=== PATIENT | male | born 1950 | race Caucasian/White ===

== ENCOUNTER 2018-05-27 15:57 | Inpatient (IN) | payer MEDICARE, MEDICAID ==
[~2018-05-27] VITALS: Ht 182.9 cm; Wt 93.0 kg
[2018-05-27] MEDS ORDERED: furosemide 10 MG/1 ML 10ml inj IV ONE (16:10)
[2018-05-27] MEDS ORDERED: normal saline 1000ML IV soln IV ONE (16:50)
[2018-05-27] MEDS ORDERED: morphine 4 MG/ML inj SYRINge IV ONE (16:50)
[2018-05-27] MEDS ORDERED: vancomycin/NS 1 GM ADD-VANTAGE 250 ML IV ONE (16:50)
[2018-05-27] MEDS ORDERED: piperacillin/tazo 3.375gm/50ml 50 ML IV ONE (16:50)
[2018-05-27] MEDS ORDERED: acetaminophen 325mg tablet PO ONE (16:50)
[2018-05-27 17:02] LABS: BASOPHILS # (AUTO) 0.3 X10'3 (0-0.2); BASOPHILS % (AUTO) 1.8 % (0-1); EOSINOPHILS % (AUTO) 0 % (0-6); HEMATOCRIT 34.5 % (42.0-52.0); HEMOGLOBIN 11.5 g/dl (14.0-17.9); LYMPHOCYTES # (AUTO) 0.2 X10'3 (1.1-4.8); LYMPHOCYTES % (AUTO) 1.4 % (21-51); MEAN CORPUSCULAR HGB CONC 33.3 g/dL (33.0-36.5); MEAN PLATELET VOLUME 7.4 FL (7.4-10.4); MONOCYTES # (AUTO) 0.1 X10'3 (0-0.9); MONOCYTES % (AUTO) 0.4 % (2-12); NEUTROPHILS # (AUTO) 14.8 X10'3 (1.8-7.7); NEUTROPHILS % (AUTO) 96.4 % (42-75); PLATELET COUNT 230 X10'3 (140-440); RED BLOOD COUNT 3.83 X10'6 (4.70-6.10); RED CELL DISTRIBUTION WIDTH 16.9 % (11.5-14.5); WHITE BLOOD COUNT 15.4 X10'3 (4.5-11.0)
[2018-05-27 17:26] LABS: ALANINE AMINOTRANSFERASE 33 U/L (12-78); ALBUMIN 1.6 G/DL (3.4-5.0); ALBUMIN/GLOBULIN RATIO 0.3 (1.1-1.5); ALKALINE PHOSPHATASE 115 IU/L (46-116); ANION GAP 10 (8-16); ASPARTATE AMINO TRANSFERASE 61 U/L (10-37); BILIRUBIN,TOTAL 1.5 MG/DL (0.1-1.0); BLOOD UREA NITROGEN 44 MG/DL (7-18); CALCIUM 7.7 MG/DL (8.5-10.1); CHLORIDE 91 MMOL/L (99-107); CREATININE 1.42 MG/DL (0.60-1.10); GLUCOSE 97 MG/DL (70-104); POTASSIUM 4.1 MMOL/L (3.5-5.1); SODIUM 124 MMOL/L (135-145); TOTAL CARBON DIOXIDE 23.4 MMOL/L (24-32); TOTAL PROTEIN 6.7 G/DL (6.4-8.2); eGFR 50 ML/MIN
[2018-05-27 17:27] LABS: INR 1.4 INR; PROTHROMBIN TIME 13.6 SECONDS (9.0-12.0)
[2018-05-27 18:13] LABS: PLATELET ESTIMATE NORMAL; TOTAL CELLS COUNTED 100
[2018-05-27 18:14] LABS: ANISOCYTOSIS 1+
[2018-05-27 18:15] LABS: BURR CELLS FEW; ELLIPTOCYTES FEW; TOXIC GRANULATION 1+; TOXIC VACUOLATION 1+
[2018-05-27 18:16] LABS: POLYCHROMASIA FEW
[2018-05-27] MEDS ORDERED: POTA10CA44 PO (19:14)
[2018-05-27] MEDS ORDERED: FURO40TA4 PO (19:14)
[2018-05-27] MEDS ORDERED: METF500T7 PO (19:14)
[2018-05-27] MEDS ORDERED: AMIO200T54 PO (19:14)
[2018-05-27] MEDS ORDERED: LISI-604 PO (19:17)
[2018-05-27] MEDS ORDERED: METO50TA7 PO (19:17)
[2018-05-27] MEDS ORDERED: APIX5TAB3 PO (19:17)
[2018-05-27] MEDS ORDERED: magnesium hydroxide 30ml (MOM) UD suspension PO PRN (19:30)
[2018-05-27] MEDS ORDERED: mag hydrox/Alum hydrox/simeth 30ml oral suspension PO PRN (19:30)
[2018-05-27] MEDS ORDERED: ondansetron/PF 4mg/2ml inj IV PRN (19:30)
[2018-05-27] MEDS ORDERED: morphine 4 MG/ML inj SYRINge IV PRN ×2 (19:30)
[2018-05-27] MEDS ORDERED: acetaminophen 325mg tablet PO PRN (19:30)
[2018-05-27] MEDS ORDERED: insulin Lispro (HumaLOG) vial - multi-dose SQ SCH (19:35)
[2018-05-27] MEDS ORDERED: dextrose ORAL solution 15 GM/59 ML bottle PO PRN ×2 (19:35)
[2018-05-27] MEDS ORDERED: dextrose 50%-water 50ml dispensing syringe IV PRN ×2 (19:35)
[2018-05-27] MEDS ORDERED: glucagon, human recombinant 1mg kit SUBCUT PRN (19:35)
[2018-05-27] MEDS ORDERED: MESSAGE TO PHARMACY PO ONE (19:35)
[2018-05-27] MEDS: vancomycin/NS 1 GM ADD-VANTAGE 250 ML X 1 DOSE IV SCH ×2 (19:55→22:00)
[2018-05-27] MEDS ORDERED: heparin, porcine 5000 units/ml vial SQ SCH (20:00)
[2018-05-27 20:06] LABS: HEMOGLOBIN A1C 7.4 % (4.5-6.2)
[2018-05-27] MEDS: apixaban 5mg tablet PO SCH (20:29)
--- NOTE | 2018-05-27 21:10 | NUR ---
received pt report from Jose Alberto JACKSON. asked questions awaiting pt arrival.
[2018-05-27 22:00] VITALS: BP 94/51
[2018-05-27] MEDS: insulin glargine (Lantus) pen - multi-dose SQ SCH (22:21)
[2018-05-28] VITALS: BP 93/57
[2018-05-28] MEDS: cefepime 1GM/NS ADD-VANTAGE 100 ML IV SCH ×3 (00:06→16:43)
[2018-05-28 05:18] LABS: HEMATOCRIT 32.9 % (42.0-52.0); HEMOGLOBIN 10.7 g/dl (14.0-17.9); LYMPHOCYTES # (AUTO) 0.3 X10'3 (1.1-4.8); MEAN CORPUSCULAR HEMOGLOBIN 28.6 PG (27.0-31.0); MEAN CORPUSCULAR HGB CONC 32.6 g/dL (33.0-36.5); MEAN CORPUSCULAR VOLUME 87.7 FL (78-98); MONOCYTES # (AUTO) 0.4 X10'3 (0-0.9); PLATELET COUNT 196 X10'3 (140-440); RED BLOOD COUNT 3.75 X10'6 (4.70-6.10); RED CELL DISTRIBUTION WIDTH 17.7 % (11.5-14.5); WHITE BLOOD COUNT 11.8 X10'3 (4.5-11.0)
[2018-05-28 05:26] LABS: BASOPHILS % (AUTO) 0.1 % (0-1); EOSINOPHILS % (AUTO) 0 % (0-6); LYMPHOCYTES % (AUTO) 2.9 % (21-51); MONOCYTES % (AUTO) 3.8 % (2-12); NEUTROPHILS % (AUTO) 93.2 % (42-75)
[2018-05-28 05:27] LABS: ALANINE AMINOTRANSFERASE 26 U/L (12-78); ALBUMIN 1.1 G/DL (3.4-5.0); ALBUMIN/GLOBULIN RATIO 0.3 (1.1-1.5); ALKALINE PHOSPHATASE 274 IU/L (46-116); ANION GAP 6 (8-16); ASPARTATE AMINO TRANSFERASE 55 U/L (10-37); BILIRUBIN,TOTAL 1.1 MG/DL (0.1-1.0); BLOOD UREA NITROGEN 43 MG/DL (7-18); BUN/CREATININE RATIO 34.1 (5.4-32.0); CALCIUM 7.1 MG/DL (8.5-10.1); CHLORIDE 97 MMOL/L (99-107); CREATININE 1.26 MG/DL (0.60-1.10); GLUCOSE 77 MG/DL (70-104); POTASSIUM 3.9 MMOL/L (3.5-5.1); SODIUM 128 MMOL/L (135-145); TOTAL CARBON DIOXIDE 24.7 MMOL/L (24-32); TOTAL PROTEIN 5.3 G/DL (6.4-8.2); eGFR 57 ML/MIN
--- NOTE | 2018-05-28 06:48 | NUR ---
Problems reprioritized. Patient report given, questions answered & plan of care reviewed with Lesly JACKSON. No signs of distress. call light in reach. IV intact.
[2018-05-28 07:26] VITALS: BP 99/60
[2018-05-28] MEDS: vancomycin inj 1,250 MG in normal saline 250ml IV soln 250 ML IV SCH ×2 (08:00→21:04)
[2018-05-28] MEDS ORDERED: non-formulary drug (Metoprolol Succinate* (Toprol Xl*) 1 TAB) PO SCH (08:00)
[2018-05-28] MEDS ORDERED: metoprolol succinate 25mg (24-HOUR) SR. Tablet PO SCH (08:00)
[2018-05-28] MEDS: amiodarone 200mg tablet PO SCH (08:13)
[2018-05-28] MEDS: apixaban 5mg tablet PO SCH ×2 (08:13→21:05)
--- NOTE | 2018-05-28 12:25 | NUR ---
Notified Dr. Robles of accu checks hypoglycemic results. Order to feed patient lunch and retake the accu check.
[2018-05-28 12:46] VITALS: BP 98/59
--- NOTE | 2018-05-28 13:15 | NUR ---
Paged Dr Robles "PAGER ID: [phone] MESSAGE: [phone] Anish Spivey there are no transfer orders for this patient. Are you wanting them transferred to PCU or just placed on Tele monitoring?"
--- NOTE | 2018-05-28 13:22 | NUR ---
Patient low BG after eating and drinking, asymptomatic at this time. Will give apple juice and take accu check repeat in 15 minutes. Will continue to monitor.
--- NOTE | 2018-05-28 13:58 | NUR ---
DM consult: Pt with A1c 7.4 given written DM ed with referral to outpatient DM class and RD contact information. Pt with no questions at this time. Pt with DM ulcer/cellulitis bilat calf given written and verbal protein education. Pt on CHO controlled diet with no doc PO intake however pt reports low intake r/t difficulty chewing. While visiting pt RN changed patient's diet to pureed CHO controlled and ordered a protein shake TID. Although pt has T2DM, protein shake is appropriate at this time d/t patient's low PO intake, increased protein needs, and low BG levels with a range of 65-92 throughout LOS. Will continue to follow and monitor BG levels and need for change of ONS. Addendum: 05/28/18 at [address] Amended: Links added.
--- NOTE | 2018-05-28 14:03 | NUR ---
Attempted to call report to ceramic research engineer, unable to find her. Charge will give nurse taking patient unit number to call back.
--- NOTE | 2018-05-28 14:13 | NUR ---
Problems reprioritized. Patient report given, questions answered & plan of care reviewed with Miriam JACKSON on Tele.
[2018-05-28 15:00] VITALS: BP 96/66
--- NOTE | 2018-05-28 15:02 | NUR ---
Patient transferred to Tele unit room 3012C. Report called. Notified nurse that patient has wounds in which all are photographed and in the chart. Patient had a bed bath just before leaving the unit and linen change as well. Patient is SL with patent IV. BM just before leaving unit.
--- NOTE | 2018-05-28 16:00 | NUR ---
During assessment of patient and bed bath with assistance from PCT, noted significant draining and weeping wounds, open areas, and necrosis to bilateral calves and feet. Heels are floated, wounds are open to air. pictures are in chart. When turning patient, noted 3 wounds- one to each upper buttock and one on the coccyx bill prominence. area cleansed and new foams placed at this time. Chuy director and charge nurse Miriam made aware. PCT's on the floor made aware to participate in frequent turns to prevent further skin breakdown.
[2018-05-28 18:00] VITALS: BP 90/59
[2018-05-28] MEDS: High Protein Shake w/Arg/Glut/Ca2+Bmb (Juven 19.3gm) pkt 240ml PO SCH (18:00)
--- NOTE | 2018-05-28 18:20 | NUR ---
Patient in room PCU 3012. I have received report from RENETTA Pineda and had the opportunity to ask questions and assume patient care. Patient is sitting up in bed comfortably, unit tech is getting vitals. He is A&O x3, TATUM and is appropriate, he has extensive wound on bilateral lower extremities. I will continue to monitor.
[2018-05-28] MEDS: insulin glargine (Lantus) pen - multi-dose SQ SCH (21:00)
[2018-05-28] MEDS: furosemide 40mg/4ml inj IV SCH (21:05)
[2018-05-28] MEDS: lactobacillus rhamnosus 10,000 MMU CELLS/CAPSULE PO SCH (21:05)
[2018-05-28] MEDS: carVEDilol 3.125mg tablet PO SCH (21:05)
[2018-05-28 22:00] VITALS: BP 93/55
[2018-05-29] MEDS: cefepime 1GM/NS ADD-VANTAGE 100 ML IV SCH ×3 (00:20→16:54)
--- NOTE | 2018-05-29 06:10 | NUR ---
Patient in room PCU 3012. I have received report from Nataliya JACKSON and had the opportunity to ask questions and assume patient care.
--- NOTE | 2018-05-29 06:12 | NUR ---
Problems reprioritized. Patient report given, questions answered & plan of care reviewed with RENETTA Quinteros.
[2018-05-29 06:44] LABS: ALANINE AMINOTRANSFERASE 28 U/L (12-78); ALBUMIN 1.2 G/DL (3.4-5.0); ALBUMIN/GLOBULIN RATIO 0.3 (1.1-1.5); ALKALINE PHOSPHATASE 102 IU/L (46-116); ANION GAP 10 (8-16); ASPARTATE AMINO TRANSFERASE 48 U/L (10-37); BLOOD UREA NITROGEN 44 MG/DL (7-18); BUN/CREATININE RATIO 38.9 (5.4-32.0); CALCIUM 7.1 MG/DL (8.5-10.1); CHLORIDE 98 MMOL/L (99-107); CREATININE 1.13 MG/DL (0.60-1.10); GLUCOSE 85 MG/DL (70-104); SODIUM 129 MMOL/L (135-145); TOTAL CARBON DIOXIDE 20.6 MMOL/L (24-32); TOTAL PROTEIN 5.7 G/DL (6.4-8.2); eGFR 65 ML/MIN
[2018-05-29 07:00] VITALS: BP 97/59
[2018-05-29 07:36] LABS: BASOPHILS # (AUTO) 0.1 X10'3 (0-0.2); BASOPHILS % (AUTO) 0.9 % (0-1); EOSINOPHILS # (AUTO) 0.1 X10'3 (0-0.9); EOSINOPHILS % (AUTO) 0.4 % (0-6); HEMATOCRIT 37.6 % (42.0-52.0); LYMPHOCYTES # (AUTO) 0.5 X10'3 (1.1-4.8); LYMPHOCYTES % (AUTO) 3.9 % (21-51); MEAN CORPUSCULAR HEMOGLOBIN 28.3 PG (27.0-31.0); MEAN CORPUSCULAR VOLUME 88.5 FL (78-98); MEAN PLATELET VOLUME 7.8 FL (7.4-10.4); MONOCYTES # (AUTO) 0.5 X10'3 (0-0.9); MONOCYTES % (AUTO) 3.8 % (2-12); NEUTROPHILS # (AUTO) 11.7 X10'3 (1.8-7.7); PLATELET COUNT 217 X10'3 (140-440); RED BLOOD COUNT 4.25 X10'6 (4.70-6.10); RED CELL DISTRIBUTION WIDTH 17.5 % (11.5-14.5); WHITE BLOOD COUNT 12.9 X10'3 (4.5-11.0)
[2018-05-29] MEDS: High Protein Shake w/Arg/Glut/Ca2+Bmb (Juven 19.3gm) pkt 240ml PO SCH ×3 (08:00→18:00)
[2018-05-29] MEDS: furosemide 40mg/4ml inj IV SCH ×2 (08:00→21:51)
[2018-05-29] MEDS: carVEDilol 3.125mg tablet PO SCH ×2 (08:00→21:51)
[2018-05-29] MEDS: vancomycin inj 1,250 MG in normal saline 250ml IV soln 250 ML IV SCH (09:09)
[2018-05-29] MEDS: apixaban 5mg tablet PO SCH ×2 (09:09→20:00)
[2018-05-29] MEDS: lisinopril 2.5mg tablet PO SCH (09:10)
[2018-05-29] MEDS: lactobacillus rhamnosus 10,000 MMU CELLS/CAPSULE PO SCH ×2 (09:10→21:51)
[2018-05-29] MEDS: amiodarone 200mg tablet PO SCH (09:11)
[2018-05-29 11:00] VITALS: BP 98/62
[2018-05-29] MEDS ORDERED: DOBUTamine-DoBUTrex 500mg/D5W 250 ML IV SCH (13:30)
[2018-05-29 15:00] VITALS: BP 103/65
--- NOTE | 2018-05-29 17:07 | NUR ---
Richard trigger: Richard 12: Pt admit w/ cellulitis and CHF EF 20% per MD note. Pt has BLE/bilateral leg +4 severe non-pitting edema w/ bilateral feet open ulcers and small open area on buttock. [facility] [email or web address] for MVM for wound healing. Pt already receiving high protein Radhames shakes TIDWM PO 25% avg remaining low. Pt has been seenby RD for high protein and DM eds. Pt reports trouble chewing and on pureed diet w/ no BSS; BI DATA ARCHITECT BSS ordered for appropriate texture recs. Will monitor for additional texture modifications and protein preferences. Rec: 1. advance to carb controlled diet w/ texture per BI DATA ARCHITECT recs 2. Radhames high protein shakes for wound healing TIDWM 3. encourage PO; MVM for wounds 4. wt per rx Addendum: 05/29/18 at [address] Amended: Links added.
--- NOTE | 2018-05-29 18:05 | NUR ---
Problems reprioritized. Patient report given, questions answered & plan of care reviewed with Andrea JACKSON.
[2018-05-29 19:00] VITALS: BP 109/67
[2018-05-29] MEDS ORDERED: VANCOMYCIN LEVEL IV NR (19:30)
--- NOTE | 2018-05-29 20:35 | NUR ---
Paged Dr. Horton: RE: Anish Jim, vanco trough 26.7 Hold heron young? Thanks Andrea [facility] [phone]
[2018-05-29] MEDS ORDERED: insulin glargine (Lantus) pen - multi-dose SQ SCH (21:00)
[2018-05-29] MEDS: clindamycin 600mg/D5W 50ml 50 ML IV SCH (21:52)
[2018-05-29] MEDS: CefTRIAXone 2gm/D5W 50ml 50 ML IV SCH (21:52)
[2018-05-29 23:00] VITALS: BP 119/65
[2018-05-30] VITALS (20 sets, daily range): BP systolic 90–154; BP diastolic 56–79
[2018-05-30] MEDS: clindamycin 600mg/D5W 50ml 50 ML IV SCH ×4 (02:02→21:14)
[2018-05-30 05:57] LABS: BASOPHILS % (AUTO) 0.1 % (0-1); EOSINOPHILS # (AUTO) 0.1 X10'3 (0-0.9); EOSINOPHILS % (AUTO) 0.6 % (0-6); HEMATOCRIT 34.6 % (42.0-52.0); HEMOGLOBIN 11.5 g/dl (14.0-17.9); LYMPHOCYTES # (AUTO) 0.7 X10'3 (1.1-4.8); LYMPHOCYTES % (AUTO) 7.3 % (21-51); MEAN CORPUSCULAR HEMOGLOBIN 28.8 PG (27.0-31.0); MEAN CORPUSCULAR HGB CONC 33.2 g/dL (33.0-36.5); MEAN CORPUSCULAR VOLUME 86.8 FL (78-98); MONOCYTES # (AUTO) 0.5 X10'3 (0-0.9); MONOCYTES % (AUTO) 4.4 % (2-12); NEUTROPHILS % (AUTO) 87.6 % (42-75); PLATELET COUNT 225 X10'3 (140-440); RED BLOOD COUNT 3.98 X10'6 (4.70-6.10); RED CELL DISTRIBUTION WIDTH 17.6 % (11.5-14.5); WHITE BLOOD COUNT 10.3 X10'3 (4.5-11.0)
[2018-05-30 06:07] LABS: ALANINE AMINOTRANSFERASE 22 U/L (12-78); ALBUMIN 1.2 G/DL (3.4-5.0); ALBUMIN/GLOBULIN RATIO 0.3 (1.1-1.5); ALKALINE PHOSPHATASE 100 IU/L (46-116); ANION GAP 9 (8-16); ASPARTATE AMINO TRANSFERASE 36 U/L (10-37); BILIRUBIN,TOTAL 0.9 MG/DL (0.1-1.0); BLOOD UREA NITROGEN 34 MG/DL (7-18); BUN/CREATININE RATIO 37.4 (5.4-32.0); CALCIUM 7.4 MG/DL (8.5-10.1); CHLORIDE 101 MMOL/L (99-107); CREATININE 0.91 MG/DL (0.60-1.10); GLUCOSE 70 MG/DL (70-104); SODIUM 133 MMOL/L (135-145); TOTAL CARBON DIOXIDE 22.6 MMOL/L (24-32); TOTAL PROTEIN 5.6 G/DL (6.4-8.2); eGFR 83 ML/MIN
--- NOTE | 2018-05-30 06:10 | NUR ---
Patient in room PCU 3012. I have received report from Andrea JACKSON and had the opportunity to ask questions and assume patient care.
--- NOTE | 2018-05-30 06:38 | NUR ---
Problems reprioritized. Patient report given, questions answered & plan of care reviewed with RENETTA Kelly.
[2018-05-30] MEDS: lactobacillus rhamnosus 10,000 MMU CELLS/CAPSULE PO SCH ×2 (08:00→21:15)
[2018-05-30] MEDS: apixaban 5mg tablet PO SCH ×2 (08:00→21:15)
[2018-05-30] MEDS: High Protein Shake w/Arg/Glut/Ca2+Bmb (Juven 19.3gm) pkt 240ml PO SCH ×3 (08:00→18:00)
[2018-05-30] MEDS: carVEDilol 3.125mg tablet PO SCH ×2 (08:00→21:15)
[2018-05-30] MEDS: amiodarone 200mg tablet PO SCH (08:00)
[2018-05-30] MEDS: lisinopril 2.5mg tablet PO SCH (08:00)
[2018-05-30] MEDS: CefTRIAXone 2gm/D5W 50ml 50 ML IV SCH (08:42)
[2018-05-30] MEDS: furosemide 40mg/4ml inj IV SCH (08:43)
[2018-05-30] MEDS ORDERED: DOBUTamine/D5W 500mg/250ml premix IV ONE (10:47)
[2018-05-30] MEDS ORDERED: desflurane 240ml liquid inh. IH ONE (10:47)
[2018-05-30] MEDS ORDERED: fentaNYL/PF 50MCG/1 ML 2ML syringe ONE (10:57)
[2018-05-30] MEDS ORDERED: midazolam 2 mg/2 ml injection ONE (10:57)
[2018-05-30] MEDS ORDERED: DOBUTamine-DoBUTrex 500mg/D5W 250 ML IV ONE (11:10)
[2018-05-30] MEDS ORDERED: etomidate 2mg/ml inj. ONE ×2 (11:11→12:14)
[2018-05-30] MEDS ORDERED: LIDOcaine 1%/PF 5ML 10 MG/ML VIAL ONE (12:14)
[2018-05-30] MEDS ORDERED: ePHEDrine 50MG/ML INJ. ONE (12:15)
--- NOTE | 2018-05-30 12:26 | NUR ---
Received from OR via PCU BED , accompanied by Anesthesiologist AARON and report given by Anesthesiolgist. PATIENT WITH B LE LITTLE BANDAGES PRESENT. + CAP REFILL AND CSM. PATIENT WITH 10L MASK ON WITH 100% SATURATIONS. ART LINE IN LEFT WRIST AND 20G PIV IN RIGHT UE WITH NS AT 10. VSS AT THIS TIME. Addendum: 05/30/18 at 1247 by Min Reyes RN, RN Amended: Links added.
--- NOTE | 2018-05-30 13:18 | NUR ---
ALL CRITERIA FOR TRANSFER TO THE FLOOR HAS BEEN ACHIEVED. VSS. BED LOW, CALL LIGHT AND VS. SET IN PLACE. RN PRESENT TO ACCEPT CARE. PATIENT RESTING COMFORTABLY IN BED. BELONGINGS SENT WITH PATIENT. DRESSINGS CDI. RENETTA GUERRA PRESENT TO ACCEPT CARE OF PATIENT. PATIENT RESTING COMFORTABLY IN BED. DRESSINGS TO B LE'S ARE CDI. Addendum: 05/30/18 at 1326 by Min Reyes RN, RN Amended: Links added.
--- NOTE | 2018-05-30 13:31 | NUR ---
Paged Dr. Antonio PAGER ID: [phone] MESSAGE: Aldair JACKSON [phone] 3012C: Anish Mendez: Pt ordered Dobutamine drip timed at 1110. Dobutamine given in OR. CARPET CUTTER states anesthesiologist D/C'd dobutamine drip. Is Dobutamine still needed? Seeking clarification. Thank you.
--- NOTE | 2018-05-30 18:10 | NUR ---
Problems reprioritized. Patient report given, questions answered & plan of care reviewed with Silva JACKSON.
--- NOTE | 2018-05-30 18:39 | NUR ---
Patient in room PCU 3012. I have received report from RENETTA Chamberlain and had the opportunity to ask questions and assume patient care.
[2018-05-30] MEDS: furosemide 20 MG/2 ML vial IV SCH (21:15)
[2018-05-31 01:00] VITALS: BP 118/64
[2018-05-31] MEDS: clindamycin 600mg/D5W 50ml 50 ML IV SCH ×3 (02:01→13:53)
[2018-05-31 03:00] VITALS: BP 127/62
[2018-05-31 04:56] VITALS: BP 126/62
[2018-05-31 05:48] LABS: BASOPHILS % (AUTO) 0.4 % (0-1); EOSINOPHILS # (AUTO) 0.1 X10'3 (0-0.9); EOSINOPHILS % (AUTO) 1.2 % (0-6); HEMATOCRIT 35.5 % (42.0-52.0); HEMOGLOBIN 11.7 g/dl (14.0-17.9); LYMPHOCYTES # (AUTO) 0.7 X10'3 (1.1-4.8); LYMPHOCYTES % (AUTO) 8.9 % (21-51); MEAN CORPUSCULAR HEMOGLOBIN 28.8 PG (27.0-31.0); MEAN CORPUSCULAR VOLUME 87.4 FL (78-98); MEAN PLATELET VOLUME 7.6 FL (7.4-10.4); MONOCYTES # (AUTO) 0.4 X10'3 (0-0.9); MONOCYTES % (AUTO) 5.1 % (2-12); NEUTROPHILS # (AUTO) 6.8 X10'3 (1.8-7.7); NEUTROPHILS % (AUTO) 84.4 % (42-75); PLATELET COUNT 258 X10'3 (140-440); RED BLOOD COUNT 4.06 X10'6 (4.70-6.10); RED CELL DISTRIBUTION WIDTH 17.5 % (11.5-14.5)
[2018-05-31 05:56] LABS: ALANINE AMINOTRANSFERASE 24 U/L (12-78); ALBUMIN 1.3 G/DL (3.4-5.0); ALBUMIN/GLOBULIN RATIO 0.3 (1.1-1.5); ALKALINE PHOSPHATASE 111 IU/L (46-116); ANION GAP 8 (8-16); ASPARTATE AMINO TRANSFERASE 32 U/L (10-37); BLOOD UREA NITROGEN 29 MG/DL (7-18); BUN/CREATININE RATIO 30.2 (5.4-32.0); CALCIUM 7.3 MG/DL (8.5-10.1); CHLORIDE 101 MMOL/L (99-107); CREATININE 0.96 MG/DL (0.60-1.10); GLUCOSE 70 MG/DL (70-104); POTASSIUM 3.7 MMOL/L (3.5-5.1); SODIUM 136 MMOL/L (135-145); TOTAL CARBON DIOXIDE 26.9 MMOL/L (24-32); TOTAL PROTEIN 6.1 G/DL (6.4-8.2); eGFR 78 ML/MIN
[2018-05-31 06:00] VITALS: BP 126/57
--- NOTE | 2018-05-31 07:02 | NUR ---
Pt blood glucose is 60. Apple juice and ensure given. Pt asymptomatic. will recheck blood glucose in 15 min.
--- NOTE | 2018-05-31 07:02 | NUR ---
Patient in room PCU 3012. I have received report from Lory JACKSON and had the opportunity to ask questions and assume patient care.
--- NOTE | 2018-05-31 07:39 | NUR ---
blood glucose 66. Apple juice given. Will repeat blood glucose check after breakfast.
[2018-05-31] MEDS: furosemide 20 MG/2 ML vial IV SCH (07:59)
[2018-05-31] MEDS: CefTRIAXone 2gm/D5W 50ml 50 ML IV SCH (07:59)
[2018-05-31] MEDS: High Protein Shake w/Arg/Glut/Ca2+Bmb (Juven 19.3gm) pkt 240ml PO SCH ×2 (08:00→13:10)
[2018-05-31 09:39] VITALS: BP_SYST 141
[2018-05-31] MEDS: apixaban 5mg tablet PO SCH (09:39)
[2018-05-31] MEDS: carVEDilol 3.125mg tablet PO SCH (09:39)
[2018-05-31] MEDS: amiodarone 200mg tablet PO SCH (09:39)
[2018-05-31] MEDS: lactobacillus rhamnosus 10,000 MMU CELLS/CAPSULE PO SCH (09:39)
[2018-05-31] MEDS: lisinopril 2.5mg tablet PO SCH (09:39)
--- NOTE | 2018-05-31 10:24 | NUR ---
Reassessment: Pt s/p debridement of bilat lower legs and feet on 05/30. Pt s/p BSS 05/31 with FURNACE DOOR TENDER recs continuing current diet as pt is tolerating. Documented PO intake average 50% prior to NPO status for debridement. Pending doc PO intake for breakfast this AM however documented that pt consumed 100% of high protein shake this AM. LBM 05/29, pt currently with not on routine bowel care. Will continue to follow. Rec: 1. Continue pureed carb controlled diet w/ thin liquids per FURNACE DOOR TENDER recs 2. Radhames high protein shakes for wound healing TIDWM 3. encourage PO; MVM for wounds 4. wt per rx Addendum: 05/31/18 at [address] Amended: Links added.
--- NOTE | 2018-05-31 15:43 | NUR ---
Report called to [facility], spoke with Marjorie JACKSON. Pt picked up by davy cargo and transferred via wc. Pt had no belongings with him. Pt in stable condition upon transfer.
== END 2018-05-31 15:55 | DRG 853 ==
LOC: ER 15:57 → ED HOLD 19:29 → EDBEDREQ 20:49 → SUR 3N 21:11 → PCU 3S 05-28 15:00
PROVIDERS: ADMIT Internal Medicine; ATTEND Internal Medicine
PROC: 0JBN0ZZ Excision of Right Lower Leg Subcutaneous Tissue and Fascia, Open Approach (ICD-10-PCS; 2018-05-30)
PROC: 0JBP0ZZ Excision of Left Lower Leg Subcutaneous Tissue and Fascia, Open Approach (ICD-10-PCS; 2018-05-30)
PROC: 0JBQ0ZZ Excision of Right Foot Subcutaneous Tissue and Fascia, Open Approach (ICD-10-PCS; 2018-05-30)
PROC: 0JBR0ZZ Excision of Left Foot Subcutaneous Tissue and Fascia, Open Approach (ICD-10-PCS; principal; 2018-05-30 10:47)
DX: A40.9 Streptococcal sepsis, unspecified (principal); I50.23 Acute on chronic systolic (congestive) heart failure; L03.115 Cellulitis of right lower limb; L03.116 Cellulitis of left lower limb; E87.1 Hypo-osmolality and hyponatremia; N17.9 Acute kidney failure, unspecified; E11.622 Type 2 diabetes mellitus with other skin ulcer; I25.10 Atherosclerotic heart disease of native coronary artery without angina pectoris; I11.0 Hypertensive heart disease with heart failure; I48.0 Paroxysmal atrial fibrillation; J44.9 Chronic obstructive pulmonary disease, unspecified; L97.529 Non-pressure chronic ulcer of other part of left foot with unspecified severity; E11.621 Type 2 diabetes mellitus with foot ulcer; L89.899 Pressure ulcer of other site, unspecified stage; E11.51 Type 2 diabetes mellitus with diabetic peripheral angiopathy without gangrene; D64.9 Anemia, unspecified; E11.628 Type 2 diabetes mellitus with other skin complications; F17.210 Nicotine dependence, cigarettes, uncomplicated; Z91.19 Patient's noncompliance with other medical treatment and regimen; Z79.01 Long term (current) use of anticoagulants
CPT/HCPCS: 36415; 71045; 80053; 80202; 82948; 83036; 83605; 83880; 84484; 85025; 85610; 87040; 87070; 87075; 87077; 87186; 92616; 93005; 93306; 93925; 96365; 96375; 97161; 97530; 99291; A6196; A6223; A6446; A6449; A7000; G0378; J0692; J0696; J1250; J1815; J1940; J2001; J2250; J2270; J2543; J3010; J3370; J3490; J7030